=== PATIENT | female | born 1990 | race Caucasian/White ===

== ENCOUNTER 2017-10-29 16:41 | Emergency (ER) | payer SELFPAY ==
[~2017-10-29] VITALS: Ht 157.5 cm; Wt 61.4 kg
[2017-10-29 16:43] VITALS: BP 122/78; PULSE 108; RESP 20; TEMP 98; O2SAT 100
--- NOTE | 2017-10-29 17:32 | RADRPT ---
EXAM DATE/TIME: 10/29/2017 17:23 [place] COMPARISON: No previous studies available for comparison. INDICATIONS : Shortness of breath. MEDICAL HISTORY : Asthma. SURGICAL HISTORY : None. ENCOUNTER: Initial ACUITY: 1 day PAIN SCORE: 8/10 LOCATION: Chest and neck. FINDINGS: PA and lateral views of the chest demonstrate the lungs to be symmetrically aerated without evidence of mass, infiltrate or effusion. The cardiomediastinal contours are unremarkable. Osseous structure s are intact. CONCLUSION: No acute disease. Nicolas Paul MD FACR on October 29, 2017 at 17:30 Board Certified Radiologist. This report was verified electronically.
[2017-10-29 19:39] VITALS: BP 118/69; PULSE 90; RESP 20; O2SAT 96
[2017-10-29] MEDS ORDERED: predniSONE 20 MG TAB PO ONE (19:45)
--- NOTE | 2017-10-29 19:47 | PD ---
HPI Chief Complaint: Respiratory Symptoms Time Seen by Provider: 19:41 Travel History International Travel<30 days: No Contact w/Intl Traveler<30days: [place] Traveled to: [place] Traveled to known affect area: No History of Present Illness HPI 27yo F with PMH of asthma presents to the ED with c/o sob since yesterday. Said it feels like her asthma but she has no medications. +Rhinorrhea. + Cough. Midsternal chest pain only with cough. Denies any fever, n/v, abdominal pain. Pt is on her menstrual period now. Denies any history of DVT/ PE. PFSH Past Medical History Asthma: Yes Respiratory: Yes (ASTHMA) Tetanus Vaccination: Unknown Influenza Vaccination: No ?: Not LMP: NOW Past Surgical History Surgical History: No Previous Surgery Social History Alcohol Use: No Tobacco Use: No Substance Use: No Allergies-Medications (Allergen,Severity, Reaction): Coded Allergies: No Known Allergies (Unverified , 10/29/17) Review of Systems Except as stated in HPI: all other systems reviewed are Neg Physical Exam Narrative GENERAL: 27yo F not in distress. SKIN: Focused skin assessment warm/dry. HEAD: Atraumatic. Normocephalic. EYES: Pupils equal and round. No scleral icterus. No injection or drainage. ENT: Throat: Clear. Uvula midline. CARDIOVASCULAR: Regular rate and rhythm. No murmur appreciated. RESPIRATORY: No accessory muscle use. Inspiratory wheezing bilaterally. GASTROINTESTINAL: Abdomen soft, non-tender, nondistended. MUSCULOSKELETAL: No obvious deformities. No clubbing. No cyanosis. No edema. No calf tenderness bilaterally. NEUROLOGICAL: Awake and alert. No obvious cranial nerve deficits. Motor grossly within normal limits. Normal speech. PSYCHIATRIC: Appropriate mood and affect; insight and judgment normal. Data Data Last Documented VS Vital Signs Date Time Temp Pulse Resp B/P (MAP) Pulse Ox O2 Delivery O2 Flow Rate FiO2 10/29/17 19:58 97 21 10/29/17 19:39 90 20 118/69 (85) Room Air 10/29/17 16:43 98.0 Orders Orders Chest, Pa & Lat (10/29/17 ) Albuterol-Ipratropium Neb (Duoneb Neb) (10/29/17 19:45) Prednisone (Deltasone) (10/29/17 19:45) [facility] Medical Decision Making Medical Screen Exam Complete: Yes Emergency Medical Condition: Yes Differential Diagnosis Asthma exacerbation vs. pneumonia vs. URI vs. bronchitis Narrative Course 27yo F with history of asthma here with c/o sob since yesterday. Feels like her asthma and she does not have any medication. Wheezing on exam. Pt given prednisone and duonebs x3. Pt reevaluated at bedside and feels much better. No longer sob and wants to go home. CXR was ordered at triage and prior to my evaluation and it was negative. Pt is well appearing. Return precautions given. Diagnosis Primary Impression: Asthma exacerbation Qualified Codes: J45.21 - Mild intermittent asthma with (acute) exacerbation Patient Instructions: General Instructions Departure Forms: Tests/Procedures Additional Instructions: Please follow up with your primary care physician in 3-7 days. Return to the ED if symptoms worsen. Med/Other Pt SpecificInfo: Prescription(s) given Scripts Albuterol 18 GM Inh (Ventolin Hfa 18 GM Inh) 90 Mcg/Act Aer 2 PUFF INH Q4H Y for SHORTNESS OF BREATH, #1 INHALER 0 Refills Prov: Bárbara Larson DO 10/29/17 Prednisone (Deltasone) 20 Mg Tab 20 MG PO BID for 5 Days, #10 TAB 0 Refills Prov: Bárbara Larson DO 10/29/17 Disposition: 01 DISCHARGE HOME Condition: Stable Bárbara Larson DO Oct 29, 2017 19:47
[2017-10-29] MEDS: RESP: ALBUTEROL 2.5 MG/IPRATROPIUM 0.5 MG NEB (SCH) INH ×2 (19:55→19:56)
[2017-10-29 19:58] VITALS: O2SAT 97
[2017-10-29] MEDS ORDERED: PRED-503 PO (22:25)
[2017-10-29] MEDS ORDERED: VENTAER INH (22:25)
== END 2017-10-29 22:36 | disposition home or self-care (01) ==
LOC: NEPD 16:41
DX: J45.901 Unspecified asthma with (acute) exacerbation (principal); J34.89 Other specified disorders of nose and nasal sinuses; R05 Cough
CPT/HCPCS: 71020; 94640; 94664; 99284; J7512